=== PATIENT | male | born 2000 | race Caucasian/White ===

== ENCOUNTER 2019-07-04 21:14 | Emergency (ER) | payer SELFPAY ==
[2019-07-04] MEDS ORDERED: predniSONE 20 MG TABLET (UD) PO ONE (21:22)
[2019-07-04] MEDS ORDERED: FAMOTIDINE 20 MG TABLET PO ONE (21:22)
[2019-07-04] MEDS ORDERED: diphenhydrAMINE HCL 25 MG CAPSULE (FP) PO ONE ×2 (21:22→21:44)
--- NOTE | 2019-07-04 21:22 | PDOC ---
Rapid Medical Evaluation Medical Evaluation: I have performed a brief in-person evaluation of this patient. The patient presents with a chief complaint of: c/o itchy rash from this afternoon; denies use of new meds/foods/products; denies sob, chest tightness Pertinent physical exam findings: In NAD, +urticarial rash (diffuse) I have ordered the following: Benadryl, Pepcid, Prednisone The patient will proceed to the ED for further evaluation. 07/04/19 21:20
[2019-07-04 21:24] VITALS: BP 123/58; PULSE 88; TEMP 97.9; BMI 21.1
[2019-07-04] MEDS ORDERED: predniSONE 20 MG TABLET (UD) ONE (21:44)
[2019-07-04] MEDS ORDERED: FAMOTIDINE 20 MG TABLET ONE (21:44)
--- NOTE | 2019-07-04 22:07 | PDOC ---
History of Present Illness - General Chief Complaint: Allergic Reaction Stated Complaint: ALLERGY REACTION Time Seen by Provider: 07/04/19 21:19 - History of Present Illness Initial Comments: 07/04/19 22:01 18-year-old male without comorbidities presents for evaluation of rash x1 day he is unsure of any precipitating chemical or food that started the rash no systemic symptoms or shortness of breath Past History - Past Medical History Allergies/Adverse Reactions: Allergies Allergy/AdvReac Type Severity Reaction Status Date / Time No Known Allergies Allergy Verified 07/04/19 21:24 Home Medications: Ambulatory Orders Methylprednisolone [Medrol Dose Oliver] 4 mg PO ASDIR #21 tablet 07/04/19 COPD: No - Psycho Social/Smoking Cessation Hx Smoking History: Never smoked Have you smoked in the past 12 months: No Information on smoking cessation initiated: No Hx Alcohol Use: No Drug/Substance Use Hx: No Review of Systems - Review of Systems Constitutional: No: Fever HEENTM: No: Throat Pain, Throat Swelling, Difficulty Swallowing Respiratory: No: Shortness of Breath, Wheezing Integumentary: Yes: Pruritus, Rash *Physical Exam - Vital Signs Last Vital Signs Temp Pulse Resp BP Pulse Ox 97.9 F 88 18 123/58 L 100 07/04/19 21:22 07/04/19 21:22 07/04/19 21:22 07/04/19 21:22 07/04/19 21:22 - Physical Exam 07/04/19 22:02 GENERAL: The patient is awake, alert, and fully oriented, in no acute distress. HEAD: Normal with no signs of trauma. EYES: sclera anicteric, conjunctiva clear. ENT: Ears normal tympanic membranes normal oropharynx clear uvula midline NECK: Normal range of motion LUNGS: Breath sounds equal, clear to auscultation bilaterally. No wheezes, and no crackles. HEART: S1 and S2 without murmur, rub or gallop. ABDOMEN: Soft, nontender, normoactive bowel sounds. No guarding, no rebound. No masses. EXTREMITIES: Normal range of motion, no edema. No clubbing or cyanosis. No cords, erythema, or tenderness. NEUROLOGICAL: Cranial nerves II through XII grossly intact. Normal speech, normal gait. PSYCH: Normal mood, normal affect. SKIN: Warm, Dry, normal turgor, diffuse raised wheals on the trunk torso upper and lower extremities ED Treatment Course - Medications Given in the ED: ED Medications Discontinued Medications Generic Name Dose Route Start Last Admin Trade Name So PRN Reason Stop Dose Admin Diphenhydramine HCl 50 mg 07/04/19 21:22 07/04/19 21:43 Benadryl - PO 07/04/19 21:23 50 mg ONCE ONE Administration Famotidine 20 mg 07/04/19 21:22 07/04/19 21:43 Pepcid - PO 07/04/19 21:23 20 mg ONCE ONE Administration Prednisone 40 mg 07/04/19 21:22 07/04/19 21:43 Deltasone - PO 07/04/19 21:23 40 mg ONCE ONE Administration Medical Decision Making - Medical Decision Making 07/04/19 22:02 Allergic rash treated with steroids will sent home on Medrol Dosepak which she can start tomorrow follow-up with primary care physician Discharge - Discharge Information Problems reviewed: Yes Clinical Impression/Diagnosis: Allergic rash present on examination Condition: Stable Disposition: HOME - Admission No - Follow up/Referral Referrals: Jose Abebe MD [Staff Physician] - - Patient Discharge Instructions Additional Instructions: Please start the Medrol Dosepak tomorrow and take that medication as directed. Return to the emergency room for worsening symptoms and without fail follow-up with your primary care physician in 1 to 2 days for further evaluation and treatment options. This is an allergic rash and it is important for you to know the cause of the allergy in order to prefer to prevent the rash from happening again. - Post Discharge Activity
[2019-07-04] MEDS ORDERED: ALBUTEROL SO4 2.5/IPRATROPIUM 0.5 INH SOL 3 ML VIAL.NEB. NEB ONE (22:10)
== END 2019-07-04 22:16 | disposition home or self-care (01) ==
LOC: JERFT 21:14
DX: L50.0 Allergic urticaria (principal)
CPT/HCPCS: 99281-25